=== PATIENT | female | born 1995 | race Caucasian/White ===

== ENCOUNTER 2016-09-11 12:40 | Outpatient (CLI) | payer MEDICAID ==
[~2016-09-11] VITALS: Ht 162.6 cm; Wt 95.5 kg
[~2016-09-11 12:40] MED LIST: ASPI-515 PO; LABE200T3 PO; SERT100T PO
[2016-09-11 13:12] VITALS: BP 124/75
[2016-09-11 13:22] LABS: HEMOGLOBIN 11.1 g/dL (11.7-16.4)
[2016-09-11 13:33] LABS: BLOOD UREA NITROGEN 5 mg/dL (7-18)
[2016-09-11 13:36] LABS: ASPARTATE AMINO TRANSFERASE 11 U/L (15-37)
== END 2016-09-11 15:20 | disposition home or self-care (01) ==
LOC: LDOP 12:40
PROVIDERS: ATTEND Obstetrics & Gynecology
DX: O32.1XX0 Maternal care for breech presentation, not applicable or unspecified (principal); O26.893 Other specified pregnancy related conditions, third trimester; R03.0 Elevated blood-pressure reading, without diagnosis of hypertension; O11.3 Pre-existing hypertension with pre-eclampsia, third trimester; Z3A.34 34 weeks gestation of pregnancy
CPT/HCPCS: 36415; 59025; 76819; 80053; 81001; 82248; 82570; 84156; 84550; 85025; 87086; 99211; G0463

== ENCOUNTER 2016-09-21 20:35 | Outpatient (CLI) | payer MEDICAID ==
[~2016-09-21] VITALS: Ht 162.6 cm; Wt 97.7 kg
[2016-09-21 21:28] VITALS: BP 132/80
== END 2016-09-21 23:40 | disposition home or self-care (01) ==
LOC: LDOP 20:35
PROVIDERS: ATTEND Obstetrics & Gynecology
DX: O42.913 Preterm premature rupture of membranes, unspecified as to length of time between rupture and onset of labor, third trimester (principal); Z3A.32 32 weeks gestation of pregnancy
CPT/HCPCS: 59025; 76815; 81001; 87086; 89060; 99211; G0463; Q0114

== ENCOUNTER 2016-09-28 17:48 | Outpatient (CLI) | payer MEDICAID ==
[~2016-09-28] VITALS: Ht 162.6 cm; Wt 95.4 kg
[2016-09-28 17:57] VITALS: BP 125/74
[2016-09-28] MEDS ORDERED: ZOLPIDEM 10MG TABLET PO PRN (18:30)
== END 2016-09-28 19:30 | disposition home or self-care (01) ==
LOC: LDOP 17:48
PROVIDERS: ATTEND Obstetrics & Gynecology
DX: O26.893 Other specified pregnancy related conditions, third trimester (principal); R10.9 Unspecified abdominal pain; O11.3 Pre-existing hypertension with pre-eclampsia, third trimester; Z3A.36 36 weeks gestation of pregnancy
CPT/HCPCS: 59025; 99211; G0463

== ENCOUNTER 2016-10-08 08:16 | Inpatient (IN) | payer MEDICAID ==
[~2016-10-08] VITALS: Ht 162.6 cm; Wt 95.5 kg
[2016-10-08] MEDS ORDERED: D5%-LACTATED RINGERS 1,000 ML IV SCH (08:28)
[2016-10-08] MEDS ORDERED: OXYTOCIN 30U/ 0.9% NaCL 500ML 500 ML IV PRN (08:28)
[2016-10-08] MEDS ORDERED: OXYTOCIN 30U/ 0.9% NaCL 500ML 500 ML IV ONE (08:28)
[2016-10-08] MEDS ORDERED: CALCIUM CARBONATE 500 MG TAB.CHEW PO PRN (08:30)
[2016-10-08] MEDS ORDERED: ONDANSETRON 2MG/ML, 2ML IVPush PRN (08:30)
[2016-10-08 08:35] VITALS: BP 123/77
[2016-10-08] MEDS ORDERED: LIDOCAINE 1%, 20ML ONE (08:45)
[2016-10-08] MEDS ORDERED: MISOPROSTOL 200 MCG TABLET ONE (08:45)
[2016-10-08] MEDS ORDERED: OXYTOCIN 30U/ 0.9% NaCL 500ML 500 ML ONE ×2 (08:45→17:23)
[2016-10-08] MEDS ORDERED: NEWBORN KIT ONE (08:45)
[2016-10-08 08:51] LABS: HEMOGLOBIN 10.3 g/dL (11.7-16.4)
[2016-10-08] MEDS: LACTATED RINGERS 1,000 ML IV SCH ×2 (08:55→15:33)
[2016-10-08] MEDS ORDERED: PLEASE ENTER HEIGHT AND WEIGHT MC SCH (09:00)
[2016-10-08 09:10] LABS: ASPARTATE AMINO TRANSFERASE 15 U/L (15-37); BLOOD UREA NITROGEN 7 mg/dL (7-18)
[2016-10-08] MEDS ORDERED: FENTANYL PF 100 MCG/2ML ONE ×3 (14:33→16:37)
[2016-10-08] MEDS: FENTANYL PF 100 MCG/2ML IVPush PRN ×3 (14:36→16:42)
[2016-10-08] MEDS ORDERED: LACTATED RINGERS 1,000 ML INTUTE PRN (16:30)
[2016-10-08] MEDS ORDERED: LACTATED RINGERS 1,000 ML INTUTE SCH (16:30)
[2016-10-08] MEDS: OXYTOCIN 30U/ 0.9% NaCL 500ML 500 ML IV SCH (17:25)
[2016-10-08] MEDS ORDERED: OXYTOCIN 10 UNITS/ML, 1ML IM PRN (17:30)
[2016-10-08] MEDS ORDERED: MISOPROSTOL 200 MCG TABLET PR PRN (17:30)
[2016-10-08] MEDS ORDERED: METHYLERGONOVINE 0.2 MG/ML IM PRN (17:30)
[2016-10-08] MEDS ORDERED: ONDANSETRON 2MG/ML, 2ML IV PRN (17:30)
[2016-10-08] MEDS ORDERED: CARBOPROST TROMETHAMINE 250 MCG/ML, 1ML IM PRN (17:30)
[2016-10-08] MEDS ORDERED: OXYcodone/APAP 5/325MG TABLET PO PRN (17:30)
[2016-10-08] MEDS ORDERED: IBUPROFEN 600 MG TABLET ONE (18:20)
[2016-10-08] MEDS: IBUPROFEN 600 MG TABLET PO PRN (18:35)
[2016-10-08] MEDS: OXYcodone/APAP 5/325MG TABLET PO PRN (19:45)
[2016-10-08] MEDS: DOCUSATE 100 MG CAPSULE PO PRN (19:45)
[2016-10-08 19:55] VITALS: BP 127/82
[2016-10-08 21:00] VITALS: BP 125/79
[2016-10-08] MEDS: LABETALOL 200 MG TABLET HOMEMEDPO SCH (23:00)
[2016-10-09 00:10] VITALS: BP 114/68
[2016-10-09] MEDS: OXYcodone/APAP 5/325MG TABLET PO PRN ×2 (01:07→16:48)
[2016-10-09] MEDS: IBUPROFEN 600 MG TABLET PO PRN ×3 (01:07→15:20)
[2016-10-09 03:27] LABS: HEMOGLOBIN 10.5 g/dL (11.7-16.4)
[2016-10-09] MEDS: OXYTOCIN 30U/ 0.9% NaCL 500ML 500 ML IV SCH (03:30)
[2016-10-09 05:10] VITALS: BP 127/87
[2016-10-09 07:56] VITALS: BP 128/78
[2016-10-09] MEDS: LABETALOL 200 MG TABLET HOMEMEDPO SCH (08:00)
[2016-10-09] MEDS: DOCUSATE 100 MG CAPSULE PO PRN (08:53)
[2016-10-09] MEDS ORDERED: PRENATAL VIT/IRON/FA 1 EACH TABLET PO SCH (09:00)
[2016-10-09] MEDS ORDERED: OXYC-302 PO (16:07)
[2016-10-09] MEDS ORDERED: SENN1TAB5 PO (16:08)
[2016-10-09] MEDS ORDERED: IBUP-1222 PO (16:08)
== END 2016-10-09 16:40 | disposition home or self-care (01) | DRG 774 ==
LOC: LDIP 08:24 → 2NW 19:12
PROVIDERS: ADMIT Obstetrics & Gynecology; ATTEND Obstetrics & Gynecology
PROC: 10E0XZZ Delivery of Products of Conception, External Approach (ICD-10-PCS; principal; 2016-10-08)
PROC: 10907ZC Drainage of Amniotic Fluid, Therapeutic from Products of Conception, Via Natural or Artificial Opening (ICD-10-PCS; 2016-10-08)
PROC: 0HQ9XZZ Repair Perineum Skin, External Approach (ICD-10-PCS; 2016-10-08)
PROC: 0T9B70Z Drainage of Bladder with Drainage Device, Via Natural or Artificial Opening (ICD-10-PCS; 2016-10-08)
DX: O10.92 Unspecified pre-existing hypertension complicating childbirth (principal); F32.9 Major depressive disorder, single episode, unspecified; O99.344 Other mental disorders complicating childbirth; O62.3 Precipitate labor; O70.0 First degree perineal laceration during delivery; Z37.0 Single live birth; Z3A.38 38 weeks gestation of pregnancy; Z79.899 Other long term (current) drug therapy; Z88.0 Allergy status to penicillin; Z79.82 Long term (current) use of aspirin; Z87.59 Personal history of other complications of pregnancy, childbirth and the puerperium
CPT/HCPCS: 36415; 80053; 81001; 84550; 85025; 86850; 86900; J3010; J2590; J7120

== ENCOUNTER 2017-06-19 19:14 | Emergency (ER) | payer MEDICAID ==
[~2017-06-19] VITALS: Ht 162.6 cm; Wt 97.1 kg
[~2017-06-19 19:14] MED LIST changes: +IBUP-1222 PO; +OXYC-302 PO; +SENN-52 PO
[2017-06-19 20:27] VITALS: BP 148/98
== END 2017-06-19 20:27 | disposition home or self-care (01) ==
LOC: ED 20:00
DX: J20.8 Acute bronchitis due to other specified organisms (principal); J31.0 Chronic rhinitis; I10 Essential (primary) hypertension; F41.9 Anxiety disorder, unspecified; F32.9 Major depressive disorder, single episode, unspecified
CPT/HCPCS: 71020; 99284